=== PATIENT | female | born 1960 | race Hispanic/Latino ===

== ENCOUNTER → 2022-05-25 | Outpatient (CLI) | payer OTHER | END | disposition home or self-care (01) | LOC: RAH 09:50 | PROVIDERS: ATTEND Internal Medicine | DX: Z12.31 Encounter for screening mammogram for malignant neoplasm of breast (principal) | CPT/HCPCS: 77067 ==

== ENCOUNTER → 2022-08-16 | Outpatient (CLI) | payer OTHER | END | disposition home or self-care (01) | LOC: RAH 08:28 | PROVIDERS: ATTEND Internal Medicine | DX: K76.0 Fatty (change of) liver, not elsewhere classified (principal); R14.0 Abdominal distension (gaseous) | CPT/HCPCS: 76700 ==

== ENCOUNTER → 2022-08-20 | Outpatient (CLI) | payer OTHER | END | disposition home or self-care (01) | LOC: RAH 10:00 | PROVIDERS: ATTEND Internal Medicine | DX: R10.84 Generalized abdominal pain (principal); Z90.710 Acquired absence of both cervix and uterus | CPT/HCPCS: 74176 ==

== ENCOUNTER → 2022-08-27 | Outpatient (CLI) | payer OTHER ==
[~2022-08-27] MED LIST: REGADENOSON 0.4 MG/5 ML PF SYG IVP SCH
== END | disposition home or self-care (01) ==
LOC: RAH 09:05
PROVIDERS: ATTEND Internal Medicine Cardiovascular Disease
DX: I20.9 Angina pectoris, unspecified (principal)
CPT/HCPCS: 78452; 96374; 93017; J2785; A9500 ×2

== ENCOUNTER → 2022-12-20 | Outpatient (CLI) | payer OTHER | END | disposition home or self-care (01) | LOC: RAH 13:21 | PROVIDERS: ATTEND Internal Medicine | DX: R10.2 Pelvic and perineal pain (principal); Z90.710 Acquired absence of both cervix and uterus | CPT/HCPCS: 76856 ==

== ENCOUNTER → 2022-12-31 | Outpatient (CLI) | payer OTHER | END | disposition home or self-care (01) | LOC: RAH 13:24 | PROVIDERS: ATTEND Internal Medicine | DX: R10.30 Lower abdominal pain, unspecified (principal) | CPT/HCPCS: 74176 ==

== ENCOUNTER → 2023-06-27 | Outpatient (CLI) | payer OTHER, MEDICARE | END | disposition home or self-care (01) | LOC: RAH 08:27 | PROVIDERS: ATTEND Internal Medicine | DX: G45.9 Transient cerebral ischemic attack, unspecified (principal) | CPT/HCPCS: 93880 ==

== ENCOUNTER → 2023-09-13 | Outpatient (CLI) | payer OTHER, MEDICARE ==
[~2023-09-13] MED LIST changes: +IOHEXOL 350 MG/ML 100ML INFUS..BTL IV ONE; -REGADENOSON 0.4 MG/5 ML PF SYG IVP SCH
== END | disposition home or self-care (01) ==
LOC: RAH 08:47
PROVIDERS: ATTEND Internal Medicine Cardiovascular Disease
DX: I20.9 Angina pectoris, unspecified (principal); M47.815 Spondylosis without myelopathy or radiculopathy, thoracolumbar region
CPT/HCPCS: 75574; Q9967

== ENCOUNTER → 2023-10-31 | Outpatient (CLI) | payer OTHER, MEDICARE ==
[~2023-10-31] MED LIST changes: -IOHEXOL 350 MG/ML 100ML INFUS..BTL IV ONE; +ONDA-243 PO; +OSELT15L PO
== END | disposition home or self-care (01) ==
LOC: RAH 13:11
PROVIDERS: ATTEND Internal Medicine
DX: R92.321 Mammographic fibroglandular density, right breast (principal); N64.4 Mastodynia; R92.30 Dense breasts, unspecified
CPT/HCPCS: 76641; 77066

== ENCOUNTER → 2023-12-26 | Outpatient (CLI) | payer OTHER, MEDICARE | END | disposition home or self-care (01) | LOC: RAH 10:19 | PROVIDERS: ATTEND Internal Medicine | DX: R10.84 Generalized abdominal pain (principal) | CPT/HCPCS: 76700 ==

== ENCOUNTER → 2024-02-25 | Outpatient (CLI) | payer OTHER, MEDICARE ==
--- NOTE | 2024-02-25 12:25 | HMCIMG ---
Superficial ultrasound for possible hematoma- neck mass mid neck Findings: No fluid collections or masses are seen. Significantly, there is no evidence of hematoma. No increased fluid throughout the visualized tissue planes is identified. No lymphadenopathy is identified. Impression: No evidence of hematoma or fluid collections or other abnormalities.
== END | disposition home or self-care (01) ==
LOC: RAH 09:41
PROVIDERS: ATTEND Internal Medicine
DX: R22.1 Localized swelling, mass and lump, neck (principal)
CPT/HCPCS: 76536

== ENCOUNTER 2024-08-16 10:13 | Emergency (ER) | payer OTHER, MEDICARE ==
[~2024-08-16] VITALS: Ht 152.4 cm; Wt 82.6 kg
[2024-08-16] MEDS ORDERED: ERYT1OIN7 OP (10:23)
--- NOTE | 2024-08-16 10:24 | ERN ---
ED Note History of Present Illness Stated Complaint: LT EYE PAIN Chief Complaint: Eye Problems Time Seen by MD: 10:17 Dictation: PATIENT IS A 63-YEAR-OLD FEMALE HERE WITH A STYE TO THE LEFT EYE SHE HAS HAD SINCE SATURDAY. SHE DENIES ANY VISION CHANGES NO PAIN. NO FEVER NO CHILLS NO NAUSEA VOMITING NO HEADACHE. SHE STATES SHE HAS A HISTORY OF STYE Allergies: Coded Allergies: metformin (Unverified Allergy, Unknown, 08/27/22) tramadol (Unverified Allergy, Unknown, 08/27/22) Home Meds Active Scripts Ondansetron (Ondansetron Odt) 4 Mg Tab.rapdis, 4 MG PO q8 hours PRN for nausea, #10 TAB 0 Refills Prov:FELISA COLBERT NP 09/29/23 Oseltamivir Phosphate (Tamiflu Susp) 75 Mg Susp, 30 MG PO BID for renal dose Influenza B, #10 DOSE 0 Refills Prov:FELISA COLBERT NP 09/29/23 Past Medical History Past Medical History: Arthritis, Cancer, High Cholesterol, Heart Disease, Other Additional Past Medical Hx: GB Surgical History: Hysterectomy, Other Surgical History Other: SKIN CA REMOVAL Social History: Negative, Lives with family History: Not Applicable RN Note Reviewed/Agreed w/PFSH: Yes Review of System Dictation CONSTITUTIONAL: NEGATIVE EXCEPT FOR HPI HEAD/FACE: NEGATIVE EXCEPT FOR HPI EENT: NEGATIVE EXCEPT FOR HPI LEFT LOWER EYELID SWELLING RESPIRATORY: NEGATIVE EXCEPT FOR HPI GASTROINTESTINAL/ABDOMINAL: NEGATIVE EXCEPT FOR HPI GENITOURINARY: NEGATIVE EXCEPT FOR HPI MUSCULOSKELETAL: NEGATIVE EXCEPT FOR HPI INTEGUMENTARY: NEGATIVE EXCEPT FOR HPI NEUROLOGICAL/PSYCH: NEGATIVE EXCEPT FOR HPI HEMATOLOGIC/LYMPHATIC: NEGATIVE EXCEPT FOR HPI ALL SYSTEMS NEGATIVE, EXCEPT NOTED ABOVE. 13 POINT REVIEW OF SYSTEMS ASSESSED AND ALL NEGATIVE EXCEPT FOR ABOVE. Physical Exam Dictation VITAL SIGNS REVIEWED GENERAL APPEARANCE: ALERT, ORIENTED X 3, NO ACUTE DISTRESS, WELL DEVELOPED, NOURISHED. HEAD AND FACE: NON-TRAUMATIC. EYES: PERRL, PINK CONJUNCTIVAS, LEFT EYELID WITH STYE NOTED. EOMS ARE INTACT EARS: PINNAS INTACT AND NO SIGNS OF TRAUMA OR ERYTHEMA EAR CANALS CLEAR AND NO DISCHARGE TM NO ERYTHEMA NOSE: NO DISCHARGE, NO BLEEDING. OROPHARYNX: MOUTH NORMAL, TONGUE PINK, PHARYNX CLEAR,NO ERYTHEMA, TONSILS NO EXUDATES, NO ABSCESSES NOTED, MUCOUS MEMBRANE MOIST NECK: SUPPLE, NON-TENDER, NO THYROMEGALY, NO MASSES, NO JVD, NO BRUITS BREAST:DEFERRED CHEST:NO TENDERNESS, NO CREPITUS, NO PARADOXICAL MOVEMENT, NO RETRACTIONS LUNGS:CLEAR, WELL-VENTILATED, SYMMETRIC, NO RALES, NO WHEEZING, NO RHONCHI, NO STRIDOR, GOOD BREATH SOUNDS BILATERALLY HEART: REGULAR RATE, REGULAR RHYTHM, NO MURMUR, NO GALLOPS VASCULAR: NO PERIPHERAL EDEMA, ABDOMEN: SOFT, POSITIVE BOWEL SOUNDS, NONDISTENDED, NO GUARDING, NONTENDER, NO REBOUND, NO MASSES NO HEPATOMEGALY, NO SPLENOMEGALY, NO PEREZ'S SIGN, NO HERNIAS. RECTAL: DEFERRED GENITAL: DEFERRED NEUROLOGICAL: NORMAL SPEECH, MOTOR FUNCTION INTACT, SENSORY FUNCTION INTACT MUSCULOSKELETAL: NECK NONTENDER, FULL RANGE OF MOTION, BACK NONTENDER, FULL RANGE OF MOTION, EXTREMITIES: NONTENDER, FULL RANGE OF MOTION SKIN: COLOR PINK, DRY, NO TURGOR, NO RASH, NO LACERATIONS, NO ABRASIONS, NO CONTUSIONS. LYMPHATIC: DEFERRED Results (Laboratory/Radiology) Labs Reviewed?: Yes ED Course ED Course Orders Procedure Category Date Status Time Acetaminophen 500mg PHA 08/16/24 Transmitted Tab (Tylenol 500mg T 10:30 1020/NO LABS OR IMAGING INDICATED. PATIENT WILL BE GIVEN PAIN MANAGEMENT AND BE TREATED EMPIRICALLY FOR STYE WITH WARM COMPRESSES AND ERYTHROMYCIN OPHTHALMIC OINTMENT TO BE USED 4 TIMES A DAY FOR THE NEXT SEVEN DAYS AND SEE HER DOCTOR. Medical Decision Making MDM MEDICAL DECISION BASED ON EMPIRIC TREATMENT FOR A STYE. NO LABS OR IMAGING PATIENT GIVEN TYLENOL FOR MINOR PAIN AND PRESCRIBED ERYTHROMYCIN OPHTHALMIC OINTMENT Q.I.D. FOR SEVEN DAYS AND SEE HER DOCTOR DX & DISP Disposition: Discharge Departure Impression: Primary Impression: Hordeolum internum left lower eyelid Condition: Stable Scripts Erythromycin Base (Erythromycin) 5 Mg/Gram (0.5 %) Oint...g. 1 APPL OP QID for 7 Days, #5 GM 0 Refills apply 1 cm ribbon into the lower conjunctival sac Prov: DANNIE GRIGSBY BUS OPERATOR 08/16/24 Additional Instructions: FOLLOW-UP WITH PRIMARY CARE PROVIDER IN 1 TO 2 DAYS. TAKE MEDICATIONS DIRECTED HERE IN THE EMERGENCY ROOM. OKAY TO CONTINUE HOME MEDICATIONS UNLESS OTHERWISE DISCUSSED DURING YOUR VISIT IN THE EMERGENCY ROOM TODAY. RETURN TO YOUR NEAREST EMERGENCY ROOM IF SYMPTOMS WORSEN OR IF THERE IS NO IMPROVEMENT. CALL 911 IF YOU NEED IMMEDIATE ASSISTANCE. TAKE TYLENOL OR MOTRIN [id number] NEEDED AND IF NO CONTRAINDICATIONS ARE PRESENT. INCREASE ORAL HYDRATION. A WOUND CULTURE OR URINE CULTURE WAS ORDERED HERE IN THE EMERGENCY ROOM DEPARTMENT PLEASE FOLLOW-UP WITH PRIMARY CARE PROVIDER AND ADVISE THEM TO GET REPEAT PORTS FROM OUR FACILITY. IF YOU HAD ANY BART WRAP/SPLINTS SUSAN T WERE APPLIED HERE, PLEASE DO NOT REMOVE THEM UNTIL YOU SEE YOUR PRIMARY CARE OR SPECIALTY. WARM COMPRESSES TO LEFT EYE THREE TO 4 TIMES A DAY. APPLY ERYTHROMYCIN OINTMENT TO LEFT EYE 4 TIMES A DAY DIRECTED FOR THE NEXT SEVEN DAYS. FOLLOW UP WITH Y OUR PRIMARY CARE DOCTOR OR ICE SPECIALIST. Referrals: STERLING NERI MD (PCP) Time of Disposition: 10:22 I have reviewed the case, and I agree with, Diagnosis and Plan DANNIE GRIGSBY NP Aug 16, 2024 10:24
[2024-08-16] MEDS ORDERED: acetaMINOPHEN 500 MG TABLET PO ONE (10:30)
[2024-08-16 11:13] VITALS: BP 130/70; PULSE 55; RESP 16; TEMP 98.1; O2SAT 98
== END 2024-08-16 11:19 | disposition home or self-care (01) ==
LOC: EDH 10:13
DX: H00.025 Hordeolum internum left lower eyelid (principal); M19.90 Unspecified osteoarthritis, unspecified site; E78.00 Pure hypercholesterolemia, unspecified; Z88.5 Allergy status to narcotic agent; Z90.710 Acquired absence of both cervix and uterus
CPT/HCPCS: 99283

== ENCOUNTER 2024-11-07 10:44 | Emergency (ER) | payer OTHER, MEDICARE ==
[~2024-11-07] VITALS: Ht 152.4 cm; Wt 82.6 kg
[~2024-11-07 10:44] MED LIST changes: +ERYT1OIN7 OP
[2024-11-07 10:45] VITALS: RESP 20
[2024-11-07] MEDS ORDERED: CIPR7.5D7 OTIC (10:59)
--- NOTE | 2024-11-07 11:00 | ERN ---
ED Note History of Present Illness Stated Complaint: LT EARACHE Chief Complaint: Earache Time Seen by MD: 10:46 Dictation: 64-YEAR-OLD FEMALE COMING IN TODAY WITH COMPLAINTS OF LEFT EAR PAIN SHE HAS HAD FOR 7-10 DAYS. NO FEVER NO CHILLS NO NAUSEA VOMITING. SHE STATES SHE WENT TO A LOCAL URGENT CARE HOWEVER THE YOUNG LADY WHO ATTEMPTED HER WAS UNABLE TO TAKE CARE BECAUSE SHE HAS STAGE 3 KIDNEY DISEASE ON-CALL. SHE HAS NOT BEEN TO SEE HER PRIMARY CARE DOCTOR, CAME TO THE EMERGENCY ROOM INSTEAD. SHE HAS BEEN TAKEN TYLENOL WITH CODEINE FROM HER DOCTOR FOR PAIN. HEARING LOSS NO HEADACHE Allergies: Coded Allergies: metformin (Unverified Allergy, Unknown, 08/27/22) tramadol (Unverified Allergy, Unknown, 08/27/22) Home Meds Active Scripts Erythromycin Base (Erythromycin) 5 Mg/Gram (0.5 %) Oint...g., 1 APPL OP QID for 7 Days, #5 GM 0 Refills apply 1 cm ribbon into the lower conjunctival sac Prov:DANNIE GRIGSBY OIL DEVELOPER 08/16/24 Ondansetron (Ondansetron Odt) 4 Mg Tab.rapdis, 4 MG PO q8 hours PRN for nausea, #10 TAB 0 Refills Prov:FELISA COLBERT OIL DEVELOPER 09/29/23 Oseltamivir Phosphate (Tamiflu Susp) 75 Mg Susp, 30 MG PO BID for renal dose Influenza B, #10 DOSE 0 Refills Prov:FELISA COLBERT OIL DEVELOPER 09/29/23 Past Medical History Past Medical History: Diabetes-Type II, GERD, High Cholesterol, Heart Disease, Hypertension, Renal Disese, Renal Failure Additional Past Medical Hx: GB Surgical History: Other, BTL Surgical History Other: RT KNEE SX Social History: Negative, Lives with family History: Not Applicable RN Note Reviewed/Agreed w/PFSH: Yes Review of System Dictation CONSTITUTIONAL: NEGATIVE EXCEPT FOR HPI HEAD/FACE: NEGATIVE EXCEPT FOR HPI EENT: NEGATIVE EXCEPT FOR HPI LEFT EAR PAIN RESPIRATORY: NEGATIVE EXCEPT FOR HPI GASTROINTESTINAL/ABDOMINAL: NEGATIVE EXCEPT FOR HPI GENITOURINARY: NEGATIVE EXCEPT FOR HPI MUSCULOSKELETAL: NEGATIVE EXCEPT FOR HPI INTEGUMENTARY: NEGATIVE EXCEPT FOR HPI NEUROLOGICAL/PSYCH: NEGATIVE EXCEPT FOR HPI HEMATOLOGIC/LYMPHATIC: NEGATIVE EXCEPT FOR HPI ALL SYSTEMS NEGATIVE, EXCEPT NOTED ABOVE. 13 POINT REVIEW OF SYSTEMS ASSESSED AND ALL NEGATIVE EXCEPT FOR ABOVE. Initial Vital Sign VS Vital Signs Date Time Temp Pulse Resp B/P (MAP) Pulse Ox O2 Delivery O2 Flow Rate FiO2 11/07/24 10:45 98.1 53 20 122/61 99 Room Air Physical Exam Dictation VITAL SIGNS REVIEWED GENERAL APPEARANCE: ALERT, ORIENTED X 3, MODERATE ACUTE DISTRESS, WELL DEVELOPED, NOURISHED. HEAD AND FACE: NON-TRAUMATIC. EYES: PERRL, PINK CONJUNCTIVAS, EYELID NO TRAUMA, ANTERIOR CHAMBER WITH ARCUS SENILIS. EARS: PINNAS INTACT AND NO SIGNS OF TRAUMA OR LEFT OTIC CANAL WITH ERYTHEMA SWELLING. NO WAX. NEGATIVE MASTOID TENDERNESS BILATERALLY. NOSE: NO DISCHARGE, NO BLEEDING. OROPHARYNX: MOUTH NORMAL, TONGUE PINK, PHARYNX CLEAR,NO ERYTHEMA, TONSILS NO EXUDATES, NO ABSCESSES NOTED, MUCOUS MEMBRANE MOIST NECK: SUPPLE, NON-TENDER, NO THYROMEGALY, NO MASSES, NO JVD, NO BRUITS BREAST:DEFERRED CHEST:NO TENDERNESS, NO CREPITUS, NO PARADOXICAL MOVEMENT, NO RETRACTIONS LUNGS:CLEAR, WELL-VENTILATED, SYMMETRIC, NO RALES, NO WHEEZING, NO RHONCHI, NO STRIDOR, GOOD BREATH SOUNDS BILATERALLY HEART: REGULAR RATE, REGULAR RHYTHM, NO MURMUR, NO GALLOPS VASCULAR: NO PERIPHERAL EDEMA, ABDOMEN: SOFT, POSITIVE BOWEL SOUNDS, NONDISTENDED, NO GUARDING, NONTENDER, NO REBOUND, NO MASSES NO HEPATOMEGALY, NO SPLENOMEGALY, NO PEREZ'S SIGN, NO HERNIAS. RECTAL: DEFERRED GENITAL: DEFERRED NEUROLOGICAL: NORMAL SPEECH, MOTOR FUNCTION INTACT, SENSORY FUNCTION INTACT MUSCULOSKELETAL: NECK NONTENDER, FULL RANGE OF MOTION, BACK NONTENDER, FULL RANGE OF MOTION, EXTREMITIES: NONTENDER, FULL RANGE OF MOTION SKIN: COLOR PINK, DRY, NO TURGOR, NO RASH, NO LACERATIONS, NO ABRASIONS, NO CONTUSIONS. LYMPHATIC: DEFERRED Results (Laboratory/Radiology) Labs Reviewed?: Yes ED Course ED Course Orders Procedure Category Date Status Time Acetaminophen With PHA 11/07/24 In Process Codeine (Tylenol-Code 11:00 Ceftriaxone 1g Vial PHA 11/07/24 In Process (Rocephine 1g Inj) 11:00 Vital Signs Date Time Temp Pulse Resp B/P (MAP) Pulse Ox O2 Delivery O2 Flow Rate FiO2 11/07/24 10:45 98.1 53 20 122/61 99 Room Air 1055/NO LABS OR IMAGING INDICATED. WE WILL DISCHARGE PATIENT HOME AFTER ROCEPHIN WITH CIPRODEX AND TOLD TO SEE HER PRIMARY CARE DOCTOR SATURDAY. Medical Decision Making MDM MEDICAL DISCHARGE MAKING BASED ON EMPIRIC TREATMENT FOR LEFT OTITIS EXTERNA. PATIENT IS STRONGLY ADVISED TO STOP Q-TIPS BEING A DIABETIC. SHE WAS GIVEN ROCEPHIN 1 G WITH TYLENOL WITH CODEINE DISCHARGED HOME WITH CIPRODEX AND TOLD TO SEE HER DOCTOR SATURDAY DX & DISP Disposition: Discharge Departure Impression: Primary Impression: Otitis externa, left Condition: Stable Scripts Ciprofloxacin HCl/Dexameth (Ciproflox-Dexameth Otic Susp) 0.3 %-0.1 % Drops.susp 4 DROP OTIC BID for 7 Days, #7.5 ML 0 Refills FOUR DROPS LEFT EAR WITH COTTON TWICE A DAY FOR SEVEN DAYS. Prov: DANNIE GRIGSBY NP 11/07/24 Additional Instructions: FOLLOW-UP WITH PRIMARY CARE PROVIDER IN 1 TO 2 DAYS. TAKE MEDICATIONS DIRECTED HERE IN THE EMERGENCY ROOM. OKAY TO CONTINUE HOME MEDICATIONS UNLESS OTHERWISE DISCUSSED DURING YOUR VISIT IN THE EMERGENCY ROOM TODAY. RETURN TO YOUR NEAREST EMERGENCY ROOM IF SYMPTOMS WORSEN OR IF THERE IS NO IMPROVEMENT. CALL 911 IF YOU NEED IMMEDIATE ASSISTANCE. TAKE TYLENOL OR MOTRIN [id number] NEEDED AND IF NO CONTRAINDICATIONS ARE PRESENT. INCREASE ORAL HYDRATION. A WOUND CULTURE OR URINE CULTURE WAS ORDERED HERE IN THE E MERGENCY ROOM DEPARTMENT PLEASE FOLLOW-UP WITH PRIMARY CARE PROVIDER AND ADVISE THEM TO GET REPEAT PORTS FROM OUR FACILITY. IF YOU HAD ANY BART WRAP/SPLINTS THAT WERE APPLIED HERE, PLEASE DO NOT REMOVE THEM UNTIL YOU SEE YOUR PRIMARY CARE OR SPECIALTY. START CIPRODEX DROPS TODAY AND TAKE DIRECTED FOR THE NEXT SEVEN DAYS. USE COTTON WITH EAR DROPS. NO COTTON SWABS TO EARS. SEE YOUR PRIMARY CARE DOCTOR ON SATURDAY WITHOUT FAIL FOR FOLLOW UP AND MANAGEMENT Referrals: STERLING NERI MD (PCP) Time of Disposition: 10:58 I have reviewed the case, and I agree with, Diagnosis and Plan DANNIE GRIGSBY NP Nov 07, 2024 10:59
[2024-11-07 11:07] VITALS: BP 122/61; PULSE 56; TEMP 98; O2SAT 16
== END 2024-11-07 11:13 | disposition home or self-care (01) ==
LOC: EDH 10:44
DX: H60.92 Unspecified otitis externa, left ear (principal); E11.9 Type 2 diabetes mellitus without complications; E78.00 Pure hypercholesterolemia, unspecified; I11.9 Hypertensive heart disease without heart failure; Z88.5 Allergy status to narcotic agent; Z98.51 Tubal ligation status; Z79.899 Other long term (current) drug therapy
CPT/HCPCS: 99283

== ENCOUNTER 2024-12-10 12:05 | Emergency (ER) | payer OTHER, MEDICARE ==
[~2024-12-10] VITALS: Ht 152.4 cm; Wt 85.7 kg
--- NOTE | 2024-12-10 13:06 | NUR ---
PATIENT CARE ASSUMED AT THIS TIME.
--- NOTE | 2024-12-10 14:38 | HMCIMG ---
FOREARM 2VWS RT REASON: fall, pain TECHNIQUE: 2 views were obtained. FINDINGS: There is no evidence of fracture or dislocation. There is no joint effusion. The soft tissues appear unremarkable. There is no evidence of a radiopaque foreign body. IMPRESSION: No acute findings. No acute fracture or dislocation
--- NOTE | 2024-12-10 14:40 | HMCIMG ---
RIGHT KNEE RADIOGRAPHS - 3 VIEWS INDICATION: Pain COMPARISON: None FINDINGS: AP, lateral views No acute fracture or dislocation identified. No significant joint effusion is present. Soft tissues appear normal. No radiopaque foreign body noted. IMPRESSION: No radiographic evidence for fracture or dislocation.. LEFT KNEE RADIOGRAPHS - 3 VIEWS INDICATION: Pain COMPARISON: None FINDINGS: AP, lateral views No acute fracture or dislocation identified. No significant joint effusion is present. Soft tissues appear normal. No radiopaque foreign body noted.
--- NOTE | 2024-12-10 15:19 | ERN ---
General Chief Complaint: Mechanical Fall Stated Complaint: FALL Time Seen by MD: 12:16 Time Seen by Midlevel: 12:16 Source: patient History of Present Illness Initial Comments 64-year-old female presents to the emergency department due to a fall that occurred prior to arrival. Patient was walking and tripped landing face down, states she placed her right forearm under her head to avoid head injury. Reports bilateral knee pain and right forearm pain. Denies any other injuries, denies LOC, denies any head injuries. Allergies: Coded Allergies: metformin (Unverified Allergy, Unknown, 08/27/22) tramadol (Unverified Allergy, Unknown, 08/27/22) Home Meds Active Scripts Ciprofloxacin HCl/Dexameth (Ciproflox-Dexameth Otic Susp) 0.3 %-0.1 % Drops.susp, 4 DROP OTIC BID for 7 Days, #7.5 ML 0 Refills FOUR DROPS LEFT EAR WITH COTTON TWICE A DAY FOR SEVEN DAYS. Prov:DANNIE GRIGSBY [facility] 11/07/24 Erythromycin Base (Erythromycin) 5 Mg/Gram (0.5 %) Oint...g., 1 APPL OP QID for 7 Days, #5 GM 0 Refills apply 1 cm ribbon into the lower conjunctival sac Prov:DANNIE GRIGSBY [facility] 08/16/24 Ondansetron (Ondansetron Odt) 4 Mg Tab.rapdis, 4 MG PO q8 hours PRN for nausea, #10 TAB 0 Refills Prov:FELISA COLBERT [facility] 09/29/23 Oseltamivir Phosphate (Tamiflu Susp) 75 Mg Susp, 30 MG PO BID for renal dose Influenza B, #10 DOSE 0 Refills Prov:FELISA COLBERT [facility] 09/29/23 Past Medical History Past Medical History: High Cholesterol, Heart Disease, Hypertension Medical History Other: GB Past Surgical History: Hysterectomy, BTL Surgical History Other: RT KNEE SX Social History Social History: Negative, Lives with family Female( History) History: Not Applicable ROS Dictation Constitutional: Negative for fever,chills, and weight loss Eyes: Negative for injury, pain,redness, and discharge ENT: Negative for injury,pain or swelling Cardiovascular: Negative for chest pain, palpitations, and edema Respiratory: Negative for shortness of breath, cough, and wheezing, Abdomen/GI: Negative for abdominal pain, nausea, vomiting, diarrhea, and constipation Back: Negative for injury and pain : Negative for painful urination, bleeding or discharge MS/Extremity: Positive for bilateral knee pain Negative for injury and deformity Skin: Negative for rash, and discoloration Neuro: Negative for headache, weakness, numbness, tingling, and seizure Psych: Negative for suicide ideation, homicidal ideation, and hallucinations Physical Exam Physical Exam Dictation General: awake, alert, no acute distress Head/Face: Normocephalic, atraumatic Eyes: PERRL, EOMI, normal conjuctiva ENT: oral cavity clear, oral mucosa moist Neck: Supple, normal range of motion Cardiovascular: RRR, normal S1/S2 Respiratory: CTAB, no respiratory distress Skin: Warm, dry, normal turgor, no rash. Skin abrasion to the left knee MS/Extremity: Pulses equal, no cyanosis, neurovascular intact, FROM. Mild tenderness on palpation of bilateral knees, no obvious deformities, no bruising noted, no swelling. Neuro: COAx4, GCS 15, strength 5/5, CN 2-12 intact, normal cerebellar exam, normal gait Psych: Normal behavior, mood, and affect normal Results EKG/XRAY/US/CT/MRI X-RAY Comment REASON: fall, pain ORDERING PHYSICIAN: CHAVA GOOD PAC PROCEDURE: FORARMR - FOREARM 2VWS RT FOREARM 2VWS RT REASON: fall, pain TECHNIQUE: 2 views were obtained. FINDINGS: There is no evidence of fracture or dislocation. There is no joint effusion. The soft tissues appear unremarkable. There is no evidence of a radiopaque foreign body. IMPRESSION: No acute findings. No acute fracture or dislocation DICTATED BY: NIGEL SCOTT MD DATE: 12/10/24 1434 REASON: fall, injury ORDERING PHYSICIAN: CHAVA GOOD PAC PROCEDURE: KNEE 3VBIL - KNEE 3 VW BILATERAL RIGHT KNEE RADIOGRAPHS - 3 VIEWS INDICATION: Pain COMPARISON: None FINDINGS: AP, lateral views No acute fracture or dislocation identified. No significant joint effusion is present. Soft tissues appear normal. No radiopaque foreign body noted. IMPRESSION: No radiographic evidence for fracture or dislocation.. LEFT KNEE RADIOGRAPHS - 3 VIEWS INDICATION: Pain COMPARISON: None FINDINGS: AP, lateral views No acute fracture or dislocation identified. No significant joint effusion is present. Soft tissues appear normal. No radiopaque foreign body noted. IMPRESSION: No radiographic evidence for fracture or dislocation. DICTATED BY: NIGEL SCOTT MD DATE: 12/10/241436 MDM MDM: Differential diagnosis: Fracture, sprain, strain, dislocation Rationale: 64-year-old female presents to the emergency department due to a fall that occurred prior to arrival. Patient was walking and tripped landing face down, states she placed her right forearm under her head to avoid head injury. Reports bilateral knee pain and right forearm pain. Denies any other injuries, denies LOC, denies any head injuries. Per physical exam patient has mild tenderness to bilateral knees anterior aspect, no obvious deformities, normal range of motion, normal range of motion and no tenderness to the right forearm. X-rays obtained with no indications of fractures or dislocations. Patient was administered acetaminophen due to kidney failure unable to take other medications. Patient was educated on findings and diagnosis. Advised to follow up with PCP. Return to the emergency department for any worsening symptoms. Patient verbalized understanding. Patient stable for discharge. There are no social concerns with this patient. I independently interpreted the test that were performed, results were reviewed by me and considered findings on radiology if ordered. Medical management and examination interpretation discussions were had by me with other qualified healthcare professionals as indicated for the patient's care. ED Course Orders Procedure Category Date Status Time Knee 3 Vw Bilateral RAD 12/10/24 Resulted 12:53 Forearm 2vws Rt RAD 12/10/24 Resulted 12:54 Acetaminophen 500mg PHA 12/10/24 Complete Tab (Tylenol 500mg T 13:30 Current Medications Medications (Trade) Dose Ordered Sig/German Route PRN Reason Start Time Stop Time Status Last Admin Dose Admin Acetaminophen (TYLenol 500MG TAB) 1,000 mg ONCE ONCE PO 12/10/24 13:30 12/10/24 13:31 DC 12/10/24 13:36 Vital Signs Date Time Temp Pulse Resp B/P (MAP) Pulse Ox O2 Delivery O2 Flow Rate FiO2 12/10/24 15:30 98.1 54 17 156/78 99 Room Air* 0 21 12/10/24 13:17 98.1 52 19 155/77 100 Room Air* 0 12/10/24 12:12 98.4 68 18 169/87 98 Room Air* 0 12/10/24 12:08 98.4 68 18 169/87 98 Room Air 0 DX & DISP Disposition: Discharge Departure Impression: Primary Impression: Knee pain, bilateral Additional Impression: Fall Condition: Stable Additional Instructions: Discharge home. Rest. Follow up with primary care DrJon in 24 hours. Return to the ER for any acute changes or worsening symptoms. If any medications were prescribed take as directed. Okay to continue home medications unless otherwise discussed during your visit in the emergency room today. Patient was also advised to follow-up with primary care physician in 1 to 2 days for continued monitoring. Referrals: STERLING NERI MD (PCP) I performed the substantive portion of the visit. I have reviewed and personally made and approve the management plan that is documented in the notes by myself or the JOE. I acknowledge full responsibility for the patient's management plan. CHAVA GOOD PAC Dec 10, 2024 15:19
--- NOTE | 2024-12-10 15:28 | NUR ---
AMBULATION ASSESSMENT COMPLETED PER ED MECHANOTHERAPIST. PATIENT DEMONSTRATED AMBULATION WITH NORMAL GAIT AND VERBALIZES THAT SHE CAN WALK.
[2024-12-10 15:30] VITALS: BP 156/78; PULSE 54; RESP 17; TEMP 98.1; O2SAT 99
== END 2024-12-10 15:33 | disposition home or self-care (01) ==
LOC: EDH 12:05
DX: M25.561 Pain in right knee (principal); M25.562 Pain in left knee; M79.631 Pain in right forearm; E78.00 Pure hypercholesterolemia, unspecified; I11.9 Hypertensive heart disease without heart failure; Z88.5 Allergy status to narcotic agent; Z90.710 Acquired absence of both cervix and uterus; Z88.8 Allergy status to other drugs, medicaments and biological substances; W01.0XXA Fall on same level from slipping, tripping and stumbling without subsequent striking against object, initial encounter; Y93.01 Activity, walking, marching and hiking; Y92.89 Other specified places as the place of occurrence of the external cause; Y99.8 Other external cause status
CPT/HCPCS: 73090; 74176; 99284

== ENCOUNTER → 2024-12-10 | Outpatient (CLI) | payer OTHER, MEDICARE ==
[~2024-12-10] MED LIST changes: +CIPR7.5D7 OTIC
--- NOTE | 2024-12-11 08:52 | HMCIMG ---
EXAM: CT Abdomen and Pelvis Without IV contrast CLINICAL HISTORY: Generalized abdominal pain TECHNIQUE: Axial computed tomography images of the abdomen and pelvis without intravenous contrast. CONTRAST: No IV contrast. COMPARISON: 12/26/23 - CT - CT ABDOMEN/PELVIS W/O CONTRAST 12/31/22 CT - CT ABDOMEN/PELVIS W/O CONTRAST FINDINGS: LUNG BASES:The lung bases appear clear. No pleural effusion. LIVER: Tiny calcification foci in the right lobe???suggestive of granulomatous etiology. GALLBLADDER AND BILE DUCTS: The gallbladder appears within normal limits. No radioopaque gallstones. No biliary ductal dilatation. PANCREAS: Unremarkable. SPLEEN: Tiny calcification foci in the splenic parenchyma???suggestive of granulomatous etiology. ADRENAL GLANDS: Unremarkable. KIDNEYS, URETERS, AND BLADDER: The kidneys appear within normal limits. No hydronephrosis or hydroureter. No urinary calculi. STOMACH AND BOWEL: Unremarkable appearance of the stomach and bowel. No bowel obstruction. APPENDIX: Normal appendix. PERITONEUM: Scar in the midline of the anterior abdominal wall in the infra-umbilical region???suggestive of postoperative changes. No free fluid. No free air. LYMPH NODES: No lymphadenopathy. REPRODUCTIVE: Unremarkable as visualized. VASCULATURE: Atherosclerotic changes in the visualized arterial vasculature in the form of fibrocalcified plaque. No abdominal aortic aneurysm. BONES: Osseous degenerative changes with Osteosclerosis of the L1, L2, and T10 vertebrae with mild wedging of the L2 vertebral body causing approximately 20% reduction in vertebral body height No aggressive appearing osseous lesion. No acute osseous pathology.IMPRESSION: 1. No acute intraabdominal or pelvic findings. 2. Stable osteosclerosis of L1, L2, and T10 vertebrae with mild wedging of L2 vertebral body, causing approximately 20% reduction in vertebral body height. /Phelps
== END | disposition home or self-care (01) ==
LOC: RAH 11:10
PROVIDERS: ATTEND Internal Medicine
DX: M48.56XA Collapsed vertebra, not elsewhere classified, lumbar region, initial encounter for fracture (principal); M85.88 Other specified disorders of bone density and structure, other site; I25.10 Atherosclerotic heart disease of native coronary artery without angina pectoris; R10.84 Generalized abdominal pain
CPT/HCPCS: 74176